=== PATIENT | male | born 1990 | race Hispanic/Latino ===

== ENCOUNTER 2021-05-26 10:10 | Emergency (ER) | payer MEDICAID ==
[~2021-05-26] VITALS: Ht 177.8 cm; Wt 158.8 kg
[2021-05-26 10:19] VITALS: BP 133/76
[2021-05-26 11:34] LABS: BASOPHILS % (AUTO) 0.4 % (0.0-5.0); EOSINOPHILS % (AUTO) 1.6 % (0.0-8.0); HEMATOCRIT 45.8 % (42-54); MEAN CORPUSCULAR HEMOGLOBIN 30.5 pg (27.0-33.0); MEAN CORPUSCULAR HGB CONC 31.7 g/dL (32.0-36.0); MEAN CORPUSCULAR VOLUME 96.2 fL (79-99); MONOCYTES % (AUTO) 8.2 % (3.0-13.0); NEUTROPHILS % (AUTO) 73.3 % (40.0-77.0); PLATELET COUNT (AUTO) 252 K/uL (130-400); RED BLOOD CELL COUNT(AUTO) 4.76 MIL/uL (4.50-6.20); RED CELL DISTRIBUTION WIDTH 13.5 % (11.0-15.5); WHITE BLOOD COUNT (AUTO) 11.5 K/uL (4.8-10.8)
[2021-05-26 11:35] LABS: CREATININE 0.9 mg/dL (0.5-1.5); POTASSIUM 3.7 mmol/L (3.5-5.1)
[2021-05-26 11:40] LABS: ALBUMIN 3.7 g/dL (3.5-5.0); BILIRUBIN,TOTAL 0.3 mg/dL (0.2-1.0); TOTAL PROTEIN, SERUM 7.3 g/dL (6.0-8.3)
[2021-05-26] MEDS ORDERED: TOPI200T16 PO ×2 (11:40)
[2021-05-26] MEDS ORDERED: RUFI400T PO (11:40)
[2021-05-26] MEDS ORDERED: CLOB10TA3 PO (11:40)
[2021-05-26] MEDS ORDERED: ESLI800T PO (11:45)
[2021-05-26] MEDS ORDERED: OXCARBAZEPINE 300 MG TAB PO SCH (15:00)
== END 2021-05-26 16:42 | disposition home or self-care (01) ==
LOC: EDH 10:10
DX: G40.909 Epilepsy, unspecified, not intractable, without status epilepticus (principal); S16.1XXA Strain of muscle, fascia and tendon at neck level, initial encounter; S00.531A Contusion of lip, initial encounter; S60.222A Contusion of left hand, initial encounter; S30.811A Abrasion of abdominal wall, initial encounter; Z79.899 Other long term (current) drug therapy; W18.39XA Other fall on same level, initial encounter; Y93.89 Activity, other specified; Y92.89 Other specified places as the place of occurrence of the external cause; Y99.8 Other external cause status
CPT/HCPCS: 36415; 70160; 70450; 72125; 73120; 80053; 80201; 85025